=== PATIENT | male | born 1995 | race Caucasian/White ===

== ENCOUNTER 2017-02-14 12:02 | Emergency (ER) | payer OTHER ==
[~2017-02-14] VITALS: Ht 177.8 cm; Wt 85.0 kg
[~2017-02-14 12:02] MED LIST: METH500T PO
[2017-02-14 13:27] LABS: CLARITY,URINE Clear (Clear); COLOR,URINE Yellow (Yellow); GLUCOSE, URINE Negative (Neg); KETONES,URINE Negative (Neg); LEUKOCYTE ESTERASE ,URINE Negative (Neg); NITRITES, URINE Negative (Neg); OCCULT BLOOD,URINE Negative (Neg); PH,URINE 5.5 (4.8-8.0); PROTEIN,URINE Negative (Neg)
[2017-02-14 13:30] LABS: UA COLLECTION TYPE CLN CATCH MIDSTREAM
[2017-02-14] MEDS ORDERED: IBUP-1984 PO (13:34)
[2017-02-14 13:47] VITALS: BP 133/86
== END 2017-02-14 13:49 | disposition home or self-care (01) ==
LOC: ER 12:03
DX: M54.5 Low back pain (principal); R10.9 Unspecified abdominal pain
CPT/HCPCS: 76700; 81003; 99285